=== PATIENT | female | born 1960 | race Caucasian/White ===

== ENCOUNTER → 2017-03-11 | Outpatient (CLI) | payer SELFPAY ==
[2017-03-11 17:04] LABS: BASOPHILS # (AUTO) 0.02 10*3/UL; BASOPHILS % (AUTO) 0.3 % (0-1); EOSINOPHILS # (AUTO) 0.06 10*3/UL; EOSINOPHILS % (AUTO) 0.8 % (0-8); HEMATOCRIT 46.4 % (37.0-47.0); HEMOGLOBIN 15.6 g/dL (12.0-16.0); LYMPHOCYTES # (AUTO) 2.49 10*3/uL; MEAN CORPUSCULAR HEMOGLOBIN 29.2 PG (27-31); MEAN CORPUSCULAR HGB CONC 33.6 g/dL (33-37); MEAN CORPUSCULAR VOLUME 86.9 FL (81-99); MEAN PLATELET VOLUME 12.8 FL (7.4-12.2); MONOCYTES # (AUTO) 0.47 10*3/UL (0.3-0.8); MONOCYTES % (AUTO) 6.2 % (5-15); NEUTROPHILS # (AUTO) 4.55 10*3/UL; NEUTROPHILS % (AUTO) 59.7 % (50-80); RED BLOOD COUNT 5.34 10^6/uL (4.20-5.40)
[2017-03-11 17:10] LABS: PLATELET MORPHOLOGY COMMENT NORMAL MORPHOLOGY (NORM); RBC MORPHOLOGY COMMENT NORMAL MORPHOLOGY (NORM); WBC MORPHOLOGY COMMENT NORMAL MORPHOLOGY (NORM)
[2017-03-11 17:11] LABS: BLOOD UREA NITROGEN 15 mg/dL (7-22); BUN/CREATININE RATIO 21.42 (6-20); C-REACTIVE PROTEIN 1.2 mg/dL (0.0-0.9); CALCIUM 9.9 mg/dL (8.7-10.7); CHOL/HDL RATIO 4.59 RATIO (0-4.0); EST GLOMERULAR FILTRATION > 60 (>60 ml/min/1.73m(2)); HDL CHOLESTEROL 54 mg/dL (40-150); SERUM ALBUMIN 4.1 g/dL (3.5-4.8); SERUM CHOLESTEROL 248 mg/dL (120-200)
[2017-03-11 17:44] LABS: ERYTHROCYTE SEDIMENTATION RATE 5 MM/HR (0-20)
== END ==
LOC: MOB LAB 15:19
PROVIDERS: ATTEND Internal Medicine
DX: I10 Essential (primary) hypertension (principal); R42 Dizziness and giddiness; R11.2 Nausea with vomiting, unspecified; M54.2 Cervicalgia; E66.01 Morbid (severe) obesity due to excess calories; M53.3 Sacrococcygeal disorders, not elsewhere classified
CPT/HCPCS: 36415; 80053; 80061; 84443; 85025; 85652; 86140

== ENCOUNTER 2017-07-14 11:00 | Day surgery (SDC) | payer OTHER ==
[~2017-07-14 11:00] MED LIST: LIDOCAINE 2% VISCOUS(20 MG/1 ML) - 15 ML UD CUP PO ONE; LIDOCAINE W/ SODIUM BICARB 0.5 ML SYR ONE; Lactated Ringers 1,000 ML PRIMARY IV ONE; fentaNYL Inj 100 MCG/2 ML VIAL ONE
[2017-07-14] MEDS ORDERED: LIDOCAINE 2% VISCOUS(20 MG/1 ML) - 15 ML UD CUP PO ONE (12:02)
--- NOTE | 2017-07-14 13:03 | GEN.OPNOTE ---
EGD / Colonoscopy Report Surgery Date: 07/14/17 Preoperative Diagnosis: Epigastric abdominal pain. Abdominal bloating. Chronic reflux. Nausea and vomiting. Change in bowel habits. Bright red blood per rectum. Postoperative Diagnosis: Same. Procedure: #1 esophagogastroduodenoscopy. #2 complete colonoscopy. Surgeon: Syed Joseph MD Anesthesia Provider: Thomas Hernandez CRNA Anesthesia Type: MAC Indications: See preoperative diagnosis. EGD Findings: Esophagus: [Normal] GE Junction : [Normal. No significant inflammation.] Fundus : [Normal.] Body : [Normal.] Prepyloric : [Normal. No inflammation.] Small Intestine : [Normal.] A lubricated flexible upper endoscope was inserted and passed through the esophagus and stomach into the duodenum. The duodenum and duodenal bulb were unremarkable. The pyloric channel was patent. Entire gastric mucosa was unremarkable. The scope was withdrawn into the distal esophagus. The Z line was sharp and crisp without significant inflammatory changes. The scope was then withdrawn through the remainder of a normal-appearing esophagus and brought through the hypopharynx under suction completing that portion of the procedure. Colonoscopy Findings: Prep : [Very good] Cecum : [Normal] Ascending : [Normal] Transverse : [Normal] Sigmoid : [Normal with scattered diverticuli] Rectum : [Normal] Digital Rectal Exam : [No significant perianal pathology] Anoscopy:[Internal hemorrhoids] A lubricated flexible colonoscope was inserted and passed to the blind end of the cecum. The appendiceal orifice, blind end of the cecum, and ileocecal valve were clearly seen. Air was aspirated as the scope was withdrawn. The entire colonoscopy was normal without polyp, tumor, neoplastic mass, infectious or inflammatory process identified. There were scattered sigmoid diverticuli. A bivalved anoscope was inserted. Patient had some mild internal hemorrhoids. Nothing amenable to banding. No obvious bleeding. Patient tolerated the entire procedure well without complication. She was taken to outpatient surgery in stable condition. Follow-up in my office on an as-needed basis. Consider gallbladder workup for her upper abdominal symptoms when cleared with the business office and/or obtains insurance.
[2017-07-14 13:57] VITALS: TEMP 97.8
[2017-07-14 13:59] VITALS: RESP 16
== END 2017-07-14 13:35 | disposition home or self-care (01) ==
LOC: SDSC 11:00
PROVIDERS: ATTEND Surgery
DX: R10.13 Epigastric pain (principal); R14.0 Abdominal distension (gaseous); R11.2 Nausea with vomiting, unspecified; R19.4 Change in bowel habit; K62.5 Hemorrhage of anus and rectum; K21.9 Gastro-esophageal reflux disease without esophagitis
CPT/HCPCS: 43235; 45378; J2704; J3010; J7120